=== PATIENT | male | born 2000 | race Caucasian/White ===

== ENCOUNTER 2025-07-20 21:02 | Inpatient (IN) | payer OTHER ==
[~2025-07-20] VITALS: Ht 177.8 cm; Wt 29.7 kg
[2025-07-20 21:27] VITALS: O2SAT 98
[2025-07-20 23:33] LABS: HEMATOCRIT. 41.8 % (42.0-52.0); HEMOGLOBIN. 14.4 g/dL (14.0-18.0); MEAN PLATELET VOLUME 6.8 fl (7.4-10.4); PLATELET 158 x1000/uL (130-400); RED BLOOD CELL COUNT 4.24 mill/uL (4.7-6.1); RED CELL DISTRIBUTION WIDTH 13.3 % (11.6-14.6)
[2025-07-20 23:49] LABS: CREATININE 1.0 mg/dL (0.6-1.3); UREA NITROGEN BLOOD 6 mg/dL (9-23)
[2025-07-20 23:51] LABS: ASPARTATE AMINOTRANSFERASE 109 IU/L (<34); BILIRUBIN DIRECT 0.2 mg/dL (<=3.0)
[2025-07-20 23:52] LABS: BILIRUBIN TOTAL 0.6 mg/dL (0.1-1.0); PROTEIN TOTAL 8.3 g/dL (6.0-8.3)
[2025-07-21] MEDS: ONDANSETRON HCL 4MG/2ML INJ IV ONE
[2025-07-21] MEDS: CHLORDIAZEPOXIDE 25MG CAPSULE PO ONE (01:47)
[2025-07-21] MEDS: SODIUM CHLORIDE 0.9% 1,000 ML IV ONE (01:47)
[2025-07-21] MEDS: KETOROLAC 15MG/ML VIAL IV ONE (01:47)
[2025-07-21] MEDS: CHLORDIAZEPOXIDE 25MG CAPSULE PO NR (01:48)
[2025-07-21] MEDS: KETOROLAC 15MG/ML VIAL IV NR (02:17)
[2025-07-21] MEDS: ONDANSETRON HCL 4MG/2ML INJ IV NR (02:17)
[2025-07-21] MEDS: METOCLOPRAMIDE HCL 10MG/2ML VIAL IV ONE (02:36)
[2025-07-21] MEDS: MORPHINE SULFATE 4 MG/ML INJ (FOR IV/IM USE) IV ONE (02:36)
[2025-07-21 03:30] VITALS: BP 118/83; PULSE 66; RESP 18; TEMP 36.696
[2025-07-21 04:00] VITALS: BP 118/83; PULSE 66; RESP 18; TEMP 36.7; O2SAT 98
[2025-07-21] MEDS ORDERED: MELO-106 PO (04:18)
[2025-07-21] MEDS ORDERED: CHLO10CA6 PO (04:18)
[2025-07-21] MEDS ORDERED: FAMO20TA8 PO (04:18)
[2025-07-21] MEDS: FOLIC ACID 1 MG, THIAMINE HCL 100 MG, MVI, ADULT NO.1 10 ML in DEXTROSE 5% WATER 1,000 ML IV ONE (06:19)
[2025-07-21] MEDS: HYDROCODONE/ACETAMINOPHEN 5/325MG TABLET PO PRN (06:26)
[2025-07-21 06:51] LABS: BAND% 20.0 % (1.0-6.0); LYMPHOCYTES % MANUAL 8.0 % (20.0-50.0); MONOCYTES % MANUAL 6.0 % (2.0-8.0); NEUTROPHILS % MANUAL 66.0 % (45.0-75.0); PLATELET ESTIMATE NORMAL
[2025-07-21] MEDS: PANTOPRAZOLE SODIUM 40 MG/VIAL IV SCH (08:52)
[2025-07-21 12:09] VITALS: BP 122/87; PULSE 64; RESP 16; TEMP 36.8; O2SAT 100
[2025-07-21 16:00] VITALS: BP 137/103; PULSE 76; RESP 16; TEMP 36.9; O2SAT 100
[2025-07-21 17:09] LABS: BASOPHILS % 0.2 % (0.0-2.0); EOSINOPHILS % 2.9 % (0.0-5.0); HEMATOCRIT. 39.9 % (42.0-52.0); HEMOGLOBIN. 13.4 g/dL (14.0-18.0); LYMPHOCYTES % 13.8 % (20.0-50.0); MEAN PLATELET VOLUME 7.2 fl (7.4-10.4); MONOCYTES % 14.6 % (2.0-8.0); NEUTROPHILS % 68.5 % (40.0-76.0); PLATELET 121 x1000/uL (130-400); RED BLOOD CELL COUNT 3.99 mill/uL (4.7-6.1); RED CELL DISTRIBUTION WIDTH 13.1 % (11.6-14.6)
[2025-07-21] MEDS: ONDANSETRON HCL 4MG/2ML INJ IV PRN (18:19)
[2025-07-21 20:00] VITALS: BP 130/97; PULSE 82; RESP 18; TEMP 36.7; O2SAT 100
[2025-07-22] VITALS: BP 141/109; PULSE 82; RESP 19; TEMP 36.9; O2SAT 100
[2025-07-22 04:00] VITALS: BP 131/70; PULSE 82; RESP 16; TEMP 36.6; O2SAT 100
[2025-07-22 08:00] VITALS: BP 148/93; PULSE 92; RESP 18; TEMP 36.9; O2SAT 95
[2025-07-22 09:04] VITALS: BP 148/93; PULSE 92; RESP 18; TEMP 36.9; O2SAT 95
[2025-07-22 11:34] VITALS: BP 133/98; PULSE 74; RESP 20; TEMP 36.6; O2SAT 99
[2025-07-22 14:38] VITALS: BP 115/68; PULSE 85; RESP 18; TEMP 98.2
== END 2025-07-22 16:30 | disposition home or self-care (01) | DRG 282 ==
LOC: ER 21:02 → 7WST 07-21 00:43 → EDBEDREQSVC 07-21 00:47 → EDBEDREQ 07-21 00:47 → EDBEDREQTM 07-21 00:47 → EDBEDREQDT 07-21 00:47 → ENRESERV 07-21 00:59 → CANRESERV 07-21 00:59 → ENRESERV 07-21 02:40
PROVIDERS: ADMIT Internal Medicine; ATTEND Internal Medicine
DX: K85.90 Acute pancreatitis without necrosis or infection, unspecified (principal); D72.825 Bandemia; F10.10 Alcohol abuse, uncomplicated; Y90.0 Blood alcohol level of less than 20 mg/100 ml; Z90.49 Acquired absence of other specified parts of digestive tract
CPT/HCPCS: 36415; 74176; 80048; 80076; 80320; 84145; 85025; 86850; 86900; 99291; A4606; J1885; J2270; J2405; J2470; J2765; J3411; J3490; J7030; J7070; G0480